=== PATIENT | male | born 1995 | race African-American/Black ===

== ENCOUNTER 2019-07-27 22:36 | Emergency (ER) | payer OTHER ==
[~2019-07-27] VITALS: Ht 172.7 cm; Wt 88.5 kg
[~2019-07-27 22:36] MED LIST: DOXYCYCLINE MO100 MG ORAL; NKM; NORCO 5-325 TA1 EACH PO; inhaler HHN
[2019-07-27 22:45] VITALS: BP 128/78
--- NOTE | 2019-07-27 22:45 | NUR ---
ED Nurse Note: Pt ambulated to ED from home c/o infection in the urethra. Pt stated denies discharge, no difficulty urinating since one week ago. Pt stated irriation. Pt stated he had chlamydia one month and got treated. VSS. Pt is A&Ox4. ERMD at bedside
[2019-07-27] MEDS ORDERED: Lidocaine 1% MPF 10mg/ml 5ml INJ ONE (23:00)
[2019-07-27] MEDS ORDERED: Azithromycin 250mg tab ORAL ONE (23:00)
--- NOTE | 2019-07-27 23:00 | NUR ---
ED Nurse Note: Pt given antibiotic shot per order in L deltoid, pt tolerated well
--- NOTE | 2019-07-27 23:02 | Emergency Room Report ---
History of Present Illness General Chief Complaint: Male Urogenital Problems Source: Patient, Medical Record Present Illness HPI This a 23-year-old STDs. He presents with complaint of dysuria. He has no discharge. Onset for last few days. He has a new partner. Has unprotected sex. He has previous STDs that was treated here. He said that got better. No fever chills. Worse with urination. Better without urination. He denies any discharge. Denies any other complaint. COVID-19 risk:Travel to affect: No Allergies: Coded Allergies: No Known Allergies (Unverified , 07/20/12) Patient History Past Medical History: see triage record, old chart reviewed Past Surgical History: none Pertinent Family History: none Social History: Denies: smoking Immunizations: other Reviewed Nursing Documentation: PMH: Agreed; PSxH: Agreed Nursing Documentation-PMH Hx Asthma: Yes Review of Systems Eye: Denies: eye pain, blurred vision ENT: Denies: ear pain, nose congestion, throat swelling Respiratory: Denies: cough, shortness of breath Cardiovascular: Denies: chest pain, palpitations Gastrointestinal: Denies: abdominal pain, diarrhea, nausea, vomiting Genitourinary: Reports: dysuria Musculoskeletal: Denies: back pain, joint pain Skin: Denies: rash Neurological: Denies: headache, numbness Endocrine: Denies: increased thirst, increased urine Hematologic/Lymphatic: Denies: easy bruising All Other Systems: negative except mentioned in HPI Physical Exam Vital Signs Date Time Temp Pulse Resp B/P (MAP) Pulse Ox O2 Delivery O2 Flow Rate FiO2 07/27/19 22:48 97.5 62 16 109/65 (80) 95 Room Air Vitals normal Sp02 EP Interpretation: reviewed, normal General Appearance: well appearing, no apparent distress, alert Head: normocephalic, atraumatic Eyes: bilateral eye PERRL, bilateral eye EOMI ENT: hearing grossly normal, normal pharynx Neck: full range of motion, supple, no meningismus Respiratory: chest non-tender, lungs clear, normal breath sounds Cardiovascular #1: regular rate, rhythm, no murmur Gastrointestinal: normal bowel sounds, non tender, no mass, no organomegaly, no bruit, non-distended Genitourinary: deferred - Per patient request Musculoskeletal: back normal, normal range of motion, gait/station normal Psychiatric: mood/affect normal Medical Decision Making Diagnostic Impression: Primary Impression: Chlamydial urethritis ER Course Patient presents with urethritis. Most likely chlamydia. He said he had it before and similar symptoms now. Recommend outpatient testing for HIV, hepatitis, syphilis and other STDs. Last Vital Signs Date Time Temp Pulse Resp B/P (MAP) Pulse Ox O2 Delivery O2 Flow Rate FiO2 07/27/19 22:48 97.5 62 16 109/65 (80) 95 Room Air Status: improved Disposition: HOME, SELF-CARE Condition: Stable Patient Instructions: Urethritis, Adult Additional Instructions: Have your partners treated also. Follow-up as outpatient with your doctor in 7 days as needed. Recommend outpatient testing for HIV, hepatitis, syphilis and other STDs. There are several free or low cost CD clinics in the [place] area. You may look it up. Return if worse. Kalyan Shafer MD Jul 27, 2019 23:02
[2019-07-27 23:05] VITALS: BP 109/65
--- NOTE | 2019-07-27 23:05 | NUR ---
ER DISCHARGE NOTE: Patient is cleared to be discharged per ERMD, pt is aox4, on room air, with stable vital signs. pt was given dc and prescription instructions, pt was able to verbalize understanding, pt id band removed. pt is able to ambulate with steady gait. pt took all belongings.
== END 2019-07-27 23:05 | disposition home or self-care (01) ==
LOC: EMR 22:52
DX: A56.01 Chlamydial cystitis and urethritis (principal)
CPT/HCPCS: 96372; 96374; J0696; Q0144; Z7502; 99284

== ENCOUNTER 2019-08-16 21:16 | Emergency (ER) | payer OTHER ==
[~2019-08-16] VITALS: Ht 170.2 cm; Wt 77.1 kg
[2019-08-16 21:30] VITALS: BP 121/76
--- NOTE | 2019-08-16 21:30 | NUR ---
ED Nurse Note: Pt walked into ED for c/o penile irritation and wanting to get checked for STD. Pt states he was recently seen here at [facility] and was treated for chlamydia, but his significant other was not treated and passed the STD back to him during intercourse. Pt has no other symptoms such as abdominal pain, dysuria or discharge. Pt is aaox4, no cardiac or respiratory distress noted.
[2019-08-16] MEDS ORDERED: Lidocaine 1% MPF 10mg/ml 5ml INJ ONE (21:45)
[2019-08-16] MEDS ORDERED: Azithromycin 250mg tab ORAL ONE (21:45)
--- NOTE | 2019-08-16 21:57 | Emergency Room Report ---
History of Present Illness General Chief Complaint: Male Urogenital Problems Source: Patient Present Illness HPI 24-year-old male presents the ER due to concern for STD. Patient seen and treated here approximately 3 weeks ago for the same. Unfortunately he continued to have sexual intercourse with his girlfriend as she was not treated. And now his symptoms have returned. He denies any fevers. Complains of some burning and discomfort on urination. Allergies: Coded Allergies: No Known Allergies (Unverified , 07/20/12) COVID-19 Screening Contact w/high risk pt: No Recent Travel to affected area: No Experienced COVID-19 symptoms?: No Patient History Reviewed Nursing Documentation: PMH: Agreed; PSxH: Agreed Nursing Documentation-PM Past Medical History: No Stated History Hx Asthma: Yes Review of Systems All Other Systems: negative except mentioned in HPI Physical Exam Vital Signs Date Time Temp Pulse Resp B/P (MAP) Pulse Ox O2 Delivery O2 Flow Rate FiO2 08/16/19 21:23 98.2 86 20 121/76 (91) 95 Room Air Sp02 EP Interpretation: reviewed, normal General Appearance: well appearing, no apparent distress Head: normocephalic, atraumatic Eyes: bilateral eye PERRL, bilateral eye EOMI ENT: hearing grossly normal, moist mucus membranes Neck: full range of motion, supple Respiratory: lungs clear, normal breath sounds, no rhonchi, no respiratory distress, no retraction, no wheezing Cardiovascular #1: normal peripheral pulses, regular rate, rhythm, no murmur Gastrointestinal: non tender, soft, non-distended, no guarding Neurologic: alert, oriented x3, no focal defects Skin: normal color, warm/dry Medical Decision Making Diagnostic Impression: Primary Impression: STD (male) ER Course MDM: 24-year-old male presented due to concern for STD. He has a positive exposure. I treated but unfortunately did not have his partner treated. differential diagnosis: Urethritis, gonorrhea, chlamydia Clinical course Patient empirically treated with Rocephin and azithromycin. Find STD testing Diagnosis -urethritis Stable and discharged to home with instructions to avoid sexual intercourse for at least 2 weeks. Partner is receiving treatment for STD today. Last Vital Signs Date Time Temp Pulse Resp B/P (MAP) Pulse Ox O2 Delivery O2 Flow Rate FiO2 08/16/19 21:30 98.2 86 20 121/76 95 Room Air Disposition: HOME, SELF-CARE Patient Instructions: Urethritis, Adult Additional Instructions: Please avoid sexual intercourse for at least 2 weeks. Patient is instructed to follow-up with her primary care doctor, primary care clinic or [facility] in 1 to 2 days. Patient instructed to return for any worsening symptoms or concerns. Please note that the documentation in this note was used with [employer] dictation technology. Pleae be advised that this may lead to erroneous text due to misinterpretation by the dictation software Seamus Horta M.D. Aug 16, 2019 21:57
[2019-08-16 22:05] VITALS: BP 120/80
== END 2019-08-16 22:06 | disposition home or self-care (01) ==
LOC: EMR 21:38
DX: N34.2 Other urethritis (principal); Z20.2 Contact with and (suspected) exposure to infections with a predominantly sexual mode of transmission
CPT/HCPCS: 96372; 96374; J0696; Q0144; Z7502; 99284

== ENCOUNTER 2019-09-05 12:25 | Emergency (ER) | payer OTHER ==
[~2019-09-05] VITALS: Ht 172.7 cm; Wt 88.5 kg
[2019-09-05 13:00] VITALS: BP 135/80
--- NOTE | 2019-09-05 13:00 | NUR ---
ED Nurse Note: Dr. Bella at bedside.
[2019-09-05] MEDS ORDERED: DOXYCYCLINE MO100 MG ORAL (13:20)
--- NOTE | 2019-09-05 13:20 | Emergency Room Report ---
History of Present Illness General Chief Complaint: Male Urogenital Problems Source: Patient Present Illness HPI 24-year-old male presents with dysuria x4 weeks no discharge he was treated previously for gonorrhea chlamydia, patient presents for evaluation, no aggravating leaving factor severity is mild, intermittent when he urinates, no fevers no chills patient presents for evaluation Allergies: Coded Allergies: No Known Allergies (Unverified , 09/05/19) COVID-19 Screening Contact w/high risk pt: No Recent Travel to affected area: No Experienced COVID-19 symptoms?: No Patient History Past Medical History: see triage record Reviewed Nursing Documentation: PMH: Agreed; PSxH: Agreed Nursing Documentation-PMH Past Medical History: No Stated History Hx Asthma: Yes Review of Systems All Other Systems: negative except mentioned in HPI Physical Exam Vital Signs Date Time Temp Pulse Resp B/P (MAP) Pulse Ox O2 Delivery O2 Flow Rate FiO2 09/05/19 12:47 98.4 87 16 135/80 (98) 96 Room Air General Appearance: well appearing, no apparent distress Head: normocephalic, atraumatic ENT: hearing grossly normal, normal voice Neck: full range of motion, supple Respiratory: no respiratory distress, speaking full sentences Genitourinary: other - Air Export Coordinator Phyllis Noah, penis is unremarkable no discharge no lesions Neurologic: alert, normal gait Psychiatric: mood/affect normal Skin: no rash Medical Decision Making Diagnostic Impression: Primary Impression: Possible exposure to STD ER Course 24-year-old male presents with most likely a possible STD exposure will treat patient with ceftriaxone is a throat will provide patient with doxycycline disposition home with return precautions follow-up with PCP Last Vital Signs Date Time Temp Pulse Resp B/P (MAP) Pulse Ox O2 Delivery O2 Flow Rate FiO2 09/05/19 12:47 98.4 87 16 135/80 (98) 96 Room Air Disposition: HOME, SELF-CARE Condition: Stable Scripts Doxycycline Monohydrate* (DOXYCYCLINE MONOHYDRATE*) 100 Mg Capsule 100 MG ORAL Q12H, #28 CAP 0 Refills Prov: Ortiz Bella MD 09/05/19 Referrals: NOT CHOSEN IPA/,REFERRING (PCP) [facility] [facility] Patient Instructions: Chlamydia, Male, Gonorrhea, Human Papillomavirus, Easy-to -Read Additional Instructions: The patient was provided with discharge instructions, notified to follow-up with a primary care doctor and or specialist in the next 24-48 hours, and to return to the ED if they have worsening of their symptoms. Please note that this report is being documented using [employer] technology. This can lead to erroneous entry secondary to incorrect interpretation by the dictating instrument. Ortiz Bella MD Sep 05, 2019 13:20
--- NOTE | 2019-09-05 13:29 | NUR ---
ED Nurse Note: Pt from home came in due to penile irritation and burning sensation x 1 month. Denies fever or chills. Pt's VSS, on RA, afebrile on triage. Placed on bed. Pt able to urinate; obtained specimen.
[2019-09-05 13:30] VITALS: BP 135/80
[2019-09-05] MEDS ORDERED: Lidocaine 1% MPF 10mg/ml 5ml INJ ONE (13:30)
[2019-09-05] MEDS ORDERED: Azithromycin 250mg tab ORAL ONE (13:30)
[2019-09-05 13:58] LABS: APPEARANCE,URINE CLEAR; BILIRUBIN, URINE NEGATIVE (NEGATIVE); COLOR,URINE PALE YELLOW; GLUCOSE, URINE (UA) NEGATIVE (NEGATIVE); KETONES,URINE NEGATIVE (NEGATIVE); LEUKOCYTE ESTERASE ,URINE NEGATIVE (NEGATIVE); NITRITE,URINE NEGATIVE (NEGATIVE); PH,URINE 6.5 (4.5-8.0); PROTEIN,URINE NEGATIVE (NEGATIVE); UROBILINOGEN,URINE NORMAL MG/DL (0.0-1.0)
== END 2019-09-05 13:30 | disposition home or self-care (01) ==
LOC: MERGE 12:50 → EMR 12:50
DX: R30.0 Dysuria (principal); Z20.2 Contact with and (suspected) exposure to infections with a predominantly sexual mode of transmission
CPT/HCPCS: 81003; 87491; 87590; 96372; J0696; Q0144; Z7502; 99283

== ENCOUNTER 2019-09-25 07:41 | Emergency (ER) | payer OTHER ==
[~2019-09-25] VITALS: Ht 172.7 cm; Wt 88.5 kg
--- NOTE | 2019-09-25 07:53 | NUR ---
ED Nurse Note: . Pt ambulated to ed c/o left eye stye Addendum: 09/25/19 at 0754 by PDELEON ED Nurse Note: Pt ambulated to ed c/o left eye stye. pt reports having pink eye x 3 days ago and got from his gf. pt applies stye gel to left eye and has been using sterile eye drops for his eyes. pt denies pain. denies "Crust" or discharge of eyes. bilateral sclera appears red.
[2019-09-25 07:55] VITALS: BP 129/84
--- NOTE | 2019-09-25 07:58 | NUR ---
ED Nurse Note: Pt reports blurriness in left eye, pt denies use of contacts and/or glasses. pt appears to be comfortable in bed on his phone.
--- NOTE | 2019-09-25 08:42 | Emergency Room Report ---
History of Present Illness General Chief Complaint: Eye Problems Source: Patient Present Illness HPI This patient states that he has had red, puffy eyes for the past 3 days. He states when he wakes up in the morning he does have crusting that he will wipe off. He has been using "eyedrops." He denies any other symptoms. He denies sneezing or runny nose. He denies cough or congestion. He denies chest pain or shortness of breath. He states that his girlfriend has the same symptoms. He states that his girlfriend has gotten better but his has not. He has no other complaints. Allergies: Coded Allergies: No Known Allergies (Unverified , 07/20/12) COVID-19 Screening Contact w/high risk pt: No Recent Travel to affected area: No Experienced COVID-19 symptoms?: No COVID-19 Testing performed KNUCKLER: No Patient History Past Medical History: none Social History: Denies: smoking, alcohol use, drug use Reviewed Nursing Documentation: PMH: Agreed; PSxH: Agreed Nursing Documentation-PMH Past Medical History: No History, Except For Hx Asthma: Yes Review of Systems All Other Systems: negative except mentioned in HPI Physical Exam Vital Signs Date Time Temp Pulse Resp B/P (MAP) Pulse Ox O2 Delivery O2 Flow Rate FiO2 09/25/19 07:47 97.5 69 18 129/84 (99) 98 Room Air Sp02 EP Interpretation: reviewed, normal General Appearance: no apparent distress, alert, GCS 15, non-toxic Head: normocephalic, atraumatic Eyes: bilateral eye PERRL, bilateral eye other - conjunctival erythema and tearing. mild bilateral eyelid swelling. ENT: hearing grossly normal, normal pharynx, no angioedema, normal voice Neck: full range of motion, supple/symm/no masses Respiratory: chest non-tender, lungs clear, normal breath sounds, speaking full sentences Cardiovascular #1: regular rate, rhythm, no edema Cardiovascular #2: 2+ carotid (R), 2+ carotid (L), 2+ radial (R), 2+ radial (L) , 2+ dorsalis pedis (R), 2+ dorsalis pedis (L) Gastrointestinal: normal bowel sounds, non tender, soft, non-distended, no guarding, no rebound Rectal: deferred Genitourinary: normal inspection, no CVA tenderness Musculoskeletal: back normal, normal range of motion, calf tenderness, gait/ station normal, non-tender Neurologic: alert, motor strength/tone normal, oriented x3, sensory intact, responsive, speech normal Psychiatric: judgement/insight normal, memory normal, mood/affect normal, no suicidal/homicidal ideation Reflexes: 3+ bicep (R), 3+ bicep (L), 3+ tricep (R), 3+ tricep (L), 3+ knee (R) , 3+ knee (L) Lymphatic: no adenopathy Medical Decision Making Diagnostic Impression: Primary Impression: Conjunctivitis ER Course This patient has conjunctivitis. He does not wear contact lenses. This possibly is a manifestation of COVID-19 given the current world pandemic. As a precaution, I will go ahead and place the patient on topical antibiotics. He has a lot of tearing and swelling so I will also use an antihistamine. Overall , the patient's evaluation is benign. The patient is instructed to follow-up closely with his primary care physician. The patient is given close return precautions and follow-up instructions. Given how benign the patient's symptoms , I did not test this patient for COVID-19, however, I did educate the patient that he could have this manifestation only. This patient was evaluated in the context of the global COVID-19 pandemic, which necessitated consideration that the patient might be at risk for infection with the [id number] virus that causes COVID-19. Institutional protocols and algorithms that pertain to the evaluation of patients at risk for COVID-19 and the state of rapid change based on information released by multiple regulatory bodies including the CDC and federal and state organizations. These policies and algorithms were followed during the patient' s care in the ED. Last Vital Signs Date Time Temp Pulse Resp B/P (MAP) Pulse Ox O2 Delivery O2 Flow Rate FiO2 09/25/19 07:55 97.5 69 18 129/84 98 Room Air Status: improved Disposition: HOME, SELF-CARE Condition: Improved Referrals: NON PHYSICIAN (PCP) Patient Instructions: Viral Conjunctivitis, Bacterial Conjunctivitis, Easy-to- Read Kimmy Herrera DO September 25, 2019 08:42
[2019-09-25 08:44] VITALS: BP 125/81
--- NOTE | 2019-09-25 08:45 | NUR ---
ED Nurse Note: Pt was discharged per ermd orders; pt denies pain. pt was given dc and rx instructions and verbalized understanding. pt id band was removed. pt vss. pt took all belongings home.
[2019-09-25] MEDS ORDERED: ZERVIATE1 EACH OP (08:46)
[2019-09-25] MEDS ORDERED: ERYTHROMYCIN1 G1 OP (08:46)
== END 2019-09-25 08:45 | disposition home or self-care (01) ==
LOC: EMR 07:56
DX: H10.9 Unspecified conjunctivitis (principal)
CPT/HCPCS: 99281

== ENCOUNTER 2019-09-26 23:06 | Emergency (ER) | payer OTHER ==
[~2019-09-26] VITALS: Ht 172.7 cm; Wt 72.6 kg
[~2019-09-26 23:06] MED LIST changes: +ERYTHROMYCIN1 G1 OP; +ZERVIATE1 EACH OP
[2019-09-26 23:25] VITALS: BP 157/89
--- NOTE | 2019-09-26 23:27 | NUR ---
Nurse Note: Pt walked in c/o bilateral eye puffiness and tearing since 09/22. Pt stated he noticed blood in tears, states he has blurry vision. Pt stated he was in ER for silimar s/s but has not gotten better; was prescribed with antibiotics but not effective. Denies pain. Acutiy check completed.
[2019-09-27] MEDS ORDERED: Lidocaine 1% MPF 10mg/ml 5ml INJ ONE
[2019-09-27] MEDS ORDERED: Azithromycin 250mg tab ORAL ONE
[2019-09-27 00:10] VITALS: BP 157/89
--- NOTE | 2019-09-27 00:10 | NUR ---
ED Nurse Note: Pt cleared by health care Provider for discharge. DC instructions was given and explained to pt and verbalized understanding of teachings. All medical deviecs such as ID band removed. Pt is AAO x4, ambulatory and left with all personal belongings.
--- NOTE | 2019-09-27 00:23 | Emergency Room Report ---
History of Present Illness General Chief Complaint: Eye Problems Source: Patient Present Illness HPI 24-year-old male presents ED for eye problems. States that symptoms started 4 days ago. His girlfriend had similar discharge to the eyes but has since resolved. Was seen here yesterday and prescribed antibiotic but states his symptoms are persisting. Denies pain. Notes crusting discharge. Notes blurry vision. Denies fevers or chills. No other aggravating relieving factors. Denies any other associated symptoms Allergies: Coded Allergies: No Known Allergies (Unverified , 07/20/12) COVID-19 Screening Contact w/high risk pt: No Recent Travel to affected area: No Experienced COVID-19 symptoms?: No COVID-19 Testing performed INSURANCE POLICY ISSUE CLERK: No Patient History Past Medical History: asthma Past Surgical History: none Pertinent Family History: none Social History: Denies: smoking, alcohol use, drug use Immunizations: UTD Reviewed Nursing Documentation: PMH: Agreed; PSxH: Agreed Nursing Documentation-PMH Hx Asthma: Yes Review of Systems All Other Systems: negative except mentioned in HPI Physical Exam Vital Signs Date Time Temp Pulse Resp B/P (MAP) Pulse Ox O2 Delivery O2 Flow Rate FiO2 09/26/19 23:11 98.4 86 16 157/89 (111) 96 Room Air Sp02 EP Interpretation: reviewed, normal General Appearance: no apparent distress, alert, GCS 15, non-toxic Head: normocephalic Eyes: bilateral eye PERRL, bilateral eye EOMI, bilateral eye lid inflammation, bilateral eye Scleral Injection, bilateral eye other - discharge noted ENT: hearing grossly normal, normal pharynx, no angioedema, normal voice Neck: full range of motion, supple, no meningismus, supple/symm/no masses Respiratory: normal inspection Cardiovascular #1: normal inspection Gastrointestinal: normal inspection Rectal: deferred Genitourinary: no CVA tenderness Musculoskeletal: normal inspection Neurologic: alert, motor strength/tone normal, oriented x3, sensory intact, responsive, speech normal Psychiatric: normal inspection Skin: no rash Lymphatic: normal inspection Medical Decision Making Diagnostic Impression: Primary Impression: Conjunctivitis Qualified Codes: H10.9 - Unspecified conjunctivitis ER Course Hospital Course 24-year-old M presents to ED with bilateral eye redness and discharge Differential diagnoses include: conjunctivitis, traumatic iritis, foreign body, corneal abrasion Clinical course Patient placed on stretcher. After initial history, physical exam revealed a male no acute distress. There is scleral injection to both eyes. There is also lid inflammation and swelling. There is noticeable discharge. Patient was seen yesterday and prescribed erythromycin ointment. It is too soon to notice improvement from medication. No signs of septal cellulitis. Afebrile. Patient has been here previously for STD evaluation multiple times. Concern for gonococcal conjunctivitis. Given Rocephin/azithromycin here. Patient will continue the erythromycin ointment as directed. I will provide ophthalmology referrals. Safe for discharge for close outpatient follow-up Diagnosis - conjunctivitis Stable and discharged to home. continue erythromycin as prescribed. Followup with PMD/Optho. Return to ED if symptoms recur or worsen Last Vital Signs Date Time Temp Pulse Resp B/P (MAP) Pulse Ox O2 Delivery O2 Flow Rate FiO2 09/27/19 00:10 98.4 78 16 157/89 96 Room Air Status: improved Disposition: HOME, SELF-CARE Condition: Stable Referrals: Cullen Erickson MD, Maziar M.D. MD NOT CHOSEN IPA/,REFERRING (PCP) [facility] INFO: New Patient Screening: Sat- 8am-1pm Sat- 9am -5pm and Sat 2pm-5pm [facility] Pediatric[facility](age 2-12) - Orthodontic Clinic - Hours: Sat,Sat,, 8:15am and 1pm (new patient screening), Tues. 1pm. Emergency clinic Saturday - Saturday 8:30am and 1pm, Tues. 1pm. *Call to check if clinic is open; No appointment necessary for the first visit ( new patient screening), Arrive 15-30 minutes early as it is first come, first serve. Patient Instructions: Bacterial Conjunctivitis, [id number] Additional Instructions: continue erythromycin ointment for both eyes. followup with eye doctor. Adrian Nicole MD September 27, 2019 00:23
== END 2019-09-27 00:10 | disposition home or self-care (01) ==
LOC: EMR 23:33
DX: H10.9 Unspecified conjunctivitis (principal)
CPT/HCPCS: 96372; J0696; Q0144; Z7502; 99283

== ENCOUNTER 2019-09-29 10:15 | Emergency (ER) | payer OTHER ==
[~2019-09-29] VITALS: Ht 172.7 cm; Wt 88.5 kg
[2019-09-29 10:23] VITALS: BP 119/74
--- NOTE | 2019-09-29 10:30 | NUR ---
ED Nurse Note: patient walked into ED from home c/o continued redness and edema bilateral eyes even after using the eye drops prescribed. patient reports his girlfriend had the same eye problem which is resolved now. patient is alert awake x4 ambulatory breathing unlabored and even, speaking in full sentences.
[2019-09-29] MEDS ORDERED: OCUFLOX5 ML BOTH EYES (11:12)
[2019-09-29 11:20] VITALS: BP 119/74
--- NOTE | 2019-09-29 11:20 | NUR ---
ER DISCHARGE NOTE: Patient is cleared to be discharged per ERMD DR DIOR, pt is aox4, on room air, with stable vital signs. pt was given dc and prescription instructions, pt was able to verbalize understanding, pt id band removed without complications. pt is able to ambulate with steady gait. pt took all belongings.
--- NOTE | 2019-09-29 11:29 | Emergency Room Report ---
History of Present Illness General Chief Complaint: Eye Problems Source: Patient Present Illness HPI 24-year-old male presents with redness and discharge to both eyes. Was seen here initially on 09/24. Noted to be conjunctivitis and prescribed erythromycin ointment. Returned on 09/25 because symptoms were worsening with increased swelling and discharge. Patient was given antibiotics and asked to continue the ointment. Patient here today because symptoms are not resolving. Denies fevers or chills. Denies runny nose cough or congestion. Denies photophobia or blurry vision. No other aggravating relieving factors. 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 Patient History Past Medical History: asthma Past Surgical History: none Pertinent Family History: none Social History: Denies: smoking, alcohol use, drug use Immunizations: UTD Reviewed Nursing Documentation: PMH: Agreed; PSxH: Agreed Nursing Documentation-PMH Past Medical History: No History, Except For Hx Asthma: Yes Review of Systems All Other Systems: negative except mentioned in HPI Physical Exam Vital Signs Date Time Temp Pulse Resp B/P (MAP) Pulse Ox O2 Delivery O2 Flow Rate FiO2 09/29/19 10:23 98.2 90 19 119/74 (89) 95 Room Air Sp02 EP Interpretation: reviewed, normal General Appearance: no apparent distress, alert, GCS 15, non-toxic Head: normocephalic, atraumatic Eyes: bilateral eye PERRL, bilateral eye EOMI, bilateral eye lid inflammation, bilateral eye Scleral Injection ENT: hearing grossly normal, normal pharynx, no angioedema, normal voice Neck: full range of motion, supple/symm/no masses Respiratory: chest non-tender, lungs clear, normal breath sounds, speaking full sentences Cardiovascular #1: regular rate, rhythm, no edema Cardiovascular #2: 2+ carotid (R), 2+ carotid (L), 2+ radial (R), 2+ radial (L) , 2+ dorsalis pedis (R), 2+ dorsalis pedis (L) Gastrointestinal: normal bowel sounds, non tender, soft, non-distended, no guarding, no rebound Rectal: deferred Genitourinary: normal inspection, no CVA tenderness Musculoskeletal: back normal, normal range of motion, gait/station normal, non- tender Neurologic: alert, motor strength/tone normal, oriented x3, sensory intact, responsive, speech normal Psychiatric: judgement/insight normal, memory normal, mood/affect normal, no suicidal/homicidal ideation Reflexes: 3+ bicep (R), 3+ bicep (L), 3+ tricep (R), 3+ tricep (L), 3+ knee (R) , 3+ knee (L) Lymphatic: no adenopathy Medical Decision Making Diagnostic Impression: Primary Impression: Conjunctivitis Qualified Codes: H10.9 - Unspecified conjunctivitis ER Course Hospital Course 24 yo M presents with discharge to both eyes Differential diagnoses include: conjunctivitis, traumatic iritis, foreign body, corneal abrasion Clinical course Patient placed on stretcher. After initial history, physical exam revealed a male no acute distress. There is injected conjunctiva and both eyes. Pupils equally reactive to light bilaterally. There is noted discharge. There is lid inflammation No runny nose or cough or congestive symptoms. Afebrile. I discussed with ophthalmology. Agreed that this is likely viral as patient likely transmitted from his girlfriend. They will evaluate in their office today. patient agrees to plan. safe for discharge Diagnosis - conjunctivitis Stable and discharged to home with prescription for Ocuflox. Followup with PMD/ Optho. Return to ED if symptoms recur or worsen Last Vital Signs Date Time Temp Pulse Resp B/P (MAP) Pulse Ox O2 Delivery O2 Flow Rate FiO2 09/29/19 11:20 98.2 90 19 119/74 95 Room Air Status: improved Disposition: HOME, SELF-CARE Condition: Stable Scripts Ofloxacin (OCUFLOX) 5 Ml Drops 1 DROP BOTH EYES QID for 7 Days, ML Prov: Adrian Nicole MD 09/29/19 Referrals: Cullen Erickson MD, Maziar M.D. MD Patient Instructions: Viral Conjunctivitis Additional Instructions: please see Dr Erickson in his office today (09/28) at 4pm. Adrian Nicole MD September 29, 2019 11:29
== END 2019-09-29 11:20 | disposition home or self-care (01) ==
LOC: EMR 10:43
DX: H10.9 Unspecified conjunctivitis (principal)
CPT/HCPCS: 99282

== ENCOUNTER 2019-10-17 12:06 | Emergency (ER) | payer OTHER ==
[~2019-10-17] VITALS: Ht 170.2 cm; Wt 88.5 kg
[~2019-10-17 12:06] MED LIST changes: +OCUFLOX5 ML BOTH EYES
--- NOTE | 2019-10-17 12:19 | NUR ---
ED Nurse Note: Pt walked into ED w/ c/o burning while urinating. Pt states he used to have a ring abround shaft too, but not anymore. He is alert and ox4, ambulatory. He is set up on monitor.
[2019-10-17 12:22] VITALS: BP 134/72
[2019-10-17 12:43] LABS: APPEARANCE,URINE CLEAR; BILIRUBIN, URINE NEGATIVE (NEGATIVE); COLOR,URINE PALE YELLOW; GLUCOSE, URINE (UA) NEGATIVE (NEGATIVE); KETONES,URINE NEGATIVE (NEGATIVE); LEUKOCYTE ESTERASE ,URINE NEGATIVE (NEGATIVE); NITRITE,URINE NEGATIVE (NEGATIVE); PH,URINE 7 (4.5-8.0); PROTEIN,URINE NEGATIVE (NEGATIVE); UROBILINOGEN,URINE NORMAL MG/DL (0.0-1.0)
--- NOTE | 2019-10-17 13:27 | Emergency Room Report ---
History of Present Illness General Chief Complaint: Male Urogenital Problems Source: Patient Present Illness HPI 24-year-old male with no significant past medical history here complaining of 2 weeks of pressure when urinating and difficulty voiding. Patient reports that he has been dealing on and off with this for the past several months has been tested and treated for sexually transmitted diseases multiple times. Patient denies any penile discharge at this time. Denies any hematuria, fever and chills, suprapubic pain, flank pain, nausea vomiting. Patient sexual partner is also here and has been diagnosed with PID. Patient has been treated for chlamydia and gonorrhea multiple occasions. Reports that was last treated for that about a week ago. Patient reports that he continues to be sexually active with the same partner without any protection. Denies any lesions in the penile area. Has not been seen by primary doctor or urologist. Denies any nocturia. Denies scrotal pain, swelling, and all other associated symptoms. 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 Patient History Past Medical History: see triage record Past Surgical History: none Pertinent Family History: none Immunizations: UTD Reviewed Nursing Documentation: PMH: Agreed; PSxH: Agreed Nursing Documentation-PMH Past Medical History: No History, Except For Hx Asthma: Yes Review of Systems All Other Systems: negative except mentioned in HPI Physical Exam Vital Signs Date Time Temp Pulse Resp B/P (MAP) Pulse Ox O2 Delivery O2 Flow Rate FiO2 10/17/19 12:12 98.6 85 16 126/76 (93) 97 Room Air Sp02 EP Interpretation: reviewed, normal General Appearance: no apparent distress, alert, GCS 15, non-toxic Head: normocephalic, atraumatic Eyes: bilateral eye normal inspection, bilateral eye PERRL ENT: hearing grossly normal, normal pharynx, no angioedema, normal voice Neck: full range of motion, supple/symm/no masses Respiratory: chest non-tender, lungs clear, normal breath sounds, speaking full sentences Cardiovascular #1: regular rate, rhythm, no edema Gastrointestinal: normal bowel sounds, non tender, soft, no mass, no organomegaly, no peritonitis Rectal: deferred Genitourinary: no CVA tenderness Musculoskeletal: back normal Neurologic: alert, motor strength/tone normal, oriented x3, sensory intact, responsive, speech normal Psychiatric: judgement/insight normal, memory normal, mood/affect normal, no suicidal/homicidal ideation Skin: no rash Lymphatic: no adenopathy Medical Decision Making PA Attestation All my diagnosis and treatment plans were reviewed ad discussed with my supervising physician Dr. Herrera Diagnostic Impression: Primary Impression: Prostatitis ER Course 24-year-old male with no significant past medical history here complaining of 2 weeks of pressure when urinating and difficulty voiding. Patient reports that he has been dealing on and off with this for the past several months has been tested and treated for sexually transmitted diseases multiple times. Patient denies any penile discharge at this time. Denies any hematuria, fever and chills, suprapubic pain, flank pain, nausea vomiting. Patient sexual partner is also here and has been diagnosed with PID. Patient has been treated for chlamydia and gonorrhea multiple occasions. Reports that was last treated for that about a week ago. Patient reports that he continues to be sexually active with the same partner without any protection. Denies any lesions in the penile area. Has not been seen by primary doctor or urologist. Denies any nocturia. Denies scrotal pain, swelling, and all other associated symptoms. Ddx considered but are not limited to: Prostatitis, UTI, chlamydia, Gonorrhea, syphilis, HIV, herpes 1 or 2 Vital signs: are WNL, pt. is afebrile H&PE are most consistent with : Prostatitis most likely secondary to STD ORDERS: UA, urince cx, doxycycline was electronically transmitted to desired pharmacy, ciprofloxacin, tamsulosin to help with the voiding ED INTERVENTIONS: None required at this time. DISCHARGE: At this time pt. is stable for d/c to home. Will provide printed patient care instructions, and any necessary prescriptions. Care plan and follow up instructions have been discussed with the patient prior to discharge. I gave patient a list of clinics that he could follow-up with and establish a primary doctor for referral to urologist. Due to the sexual partner being diagnosed with PID most likely the patient and the significant other keep reinfecting each other and patient to be treated again more aggressively. Patient does not want any injections of antibiotic today. Advised patient to follow primary doctor, if worsening symptoms return to the emergency room. Patient is afebrile, no distress he can be discharged and treated at home Patient was evaluated in the context of the global COVID-19 pandemic, which necessitated consideration that the patient might be at risk for infection with the SARS-COV-2 virus that causes COVID-19. Institutional protocols and algorithms that pertain to the evaluation of patients at risk for COVID-19 are in a state of rapid change based on information relieved by multiple regulatory bodies including the CDC and the federal and state organizations. These policies and algorithms were followed during the patient's care in the ED. Last Vital Signs Date Time Temp Pulse Resp B/P (MAP) Pulse Ox O2 Delivery O2 Flow Rate FiO2 10/17/19 12:22 98.4 73 18 134/72 99 Room Air Disposition: HOME, SELF-CARE Condition: Stable Scripts Doxycycline Monohydrate* (DOXYCYCLINE MONOHYDRATE*) 100 Mg Capsule 100 MG ORAL Q12H, #28 CAP 0 Refills Prov: Ildefonso Cook 10/17/19 Tamsulosin HCl (Flomax) 0.4 Mg Cap.er.24h 0.4 MG ORAL DAILY for 10 Days, #10 CAP Prov: Ildefonso Cook 10/17/19 Ciprofloxacin* (CIPRO*) 500 Mg Tablet 500 MG PO BID for 7 Days, #14 TAB Prov: Ildefonso Cook 10/17/19 Referrals: NON PHYSICIAN (PCP) Patient Instructions: Prostatitis, [id number] Additional Instructions: Take medication as directed, follow-up with your primary doctor for referral to urologist, if worsening symptoms return to the emergency room Ildefonso Cook Oct 17, 2019 13:27
[2019-10-17] MEDS ORDERED: CIPRO500 MG PO (13:28)
[2019-10-17] MEDS ORDERED: FLOMAX0.4 MG ORAL (13:28)
--- NOTE | 2019-10-17 13:33 | NUR ---
ER DISCHARGE NOTE: Patient is cleared to be discharged per ERMD, pt is aox4, on room air, with stable vital signs. pt was given dc and prescription instructions, pt was able to verbalize understanding, pt id band removed. pt is able to ambulate with steady gait. pt took all belongings. 2 prescriptions provided.
[2019-10-17 13:34] VITALS: BP 132/71
[2019-10-17] MEDS ORDERED: DOXYCYCLINE MO100 MG ORAL (14:22)
== END 2019-10-17 13:34 | disposition home or self-care (01) ==
LOC: EMR 12:30
DX: N41.9 Inflammatory disease of prostate, unspecified (principal)
CPT/HCPCS: 81003; Z7502; 99283

== ENCOUNTER → 2019-12-23 | Emergency (ER) | payer OTHER ==
[~2019-12-23] VITALS: Ht 170.2 cm; Wt 86.2 kg
[~2019-12-23] MED LIST changes: +CIPRO500 MG PO; +FLOMAX0.4 MG ORAL
--- NOTE | 2019-12-23 19:30 | NUR ---
ED Nurse Note: Patient walked into the ED with c/o burning sensation while urinating onset 1 week. Patient stated he was seen in the ED with the same symptoms recently. Patient refuses to give more information. Urine specimen asked to the pt.
--- NOTE | 2019-12-23 19:43 | Emergency Room Report ---
History of Present Illness General Chief Complaint: Male Urogenital Problems Source: Patient Present Illness HPI 24-year-old male with history of recurrences of UTI who has been seen at [facility] before here biotics. Patient reports that he will give a urine however would like to get a prescription before urine results are back. Patient denies any abdominal pain, nausea vomiting fever and chills. Denies being sexually active, denies any penile discharge. Has a follow-up primary doctor. Complains of dysuria however denies any hematuria. Patient is afebrile and all other vital signs within normal limits. I explained to the patient that if any changes in urine culture new antibiotics will be called in the patient does not have the correct coverage and patient agrees with this plan. 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 Patient History Past Medical History: see triage record Past Surgical History: none Pertinent Family History: none Reviewed Nursing Documentation: PMH: Agreed; PSxH: Agreed Nursing Documentation-PMH Past Medical History: No Stated History Hx Asthma: Yes Review of Systems All Other Systems: negative except mentioned in HPI Physical Exam Vital Signs Date Time Temp Pulse Resp B/P (MAP) Pulse Ox O2 Delivery O2 Flow Rate FiO2 12/23/19 19:30 98.2 78 19 137/81 (99) 96 Room Air Sp02 EP Interpretation: reviewed, normal General Appearance: no apparent distress, alert, GCS 15, non-toxic Head: normocephalic, atraumatic Eyes: bilateral eye normal inspection, bilateral eye PERRL ENT: hearing grossly normal, normal pharynx, no angioedema, normal voice Neck: full range of motion, supple/symm/no masses Respiratory: chest non-tender, lungs clear, normal breath sounds, speaking full sentences Cardiovascular #1: regular rate, rhythm, no edema Gastrointestinal: normal bowel sounds, non tender, soft, non-distended, no guarding, no rebound Rectal: deferred Genitourinary: no CVA tenderness Musculoskeletal: back normal Neurologic: alert, motor strength/tone normal, oriented x3, sensory intact, responsive, speech normal Psychiatric: judgement/insight normal, memory normal, mood/affect normal, no suicidal/homicidal ideation Skin: no rash Lymphatic: no adenopathy Medical Decision Making PA Attestation All diagnoses and treatment plans were reviewed and discussed with my supervising physician Dr. Blankenship Diagnostic Impression: Primary Impression: UTI (urinary tract infection) ER Course 24-year-old male with history of recurrences of UTI who has been seen at [facility] before here biotics. Patient reports that he will give a urine however would like to get a prescription before urine results are back. Patient denies any abdominal pain, nausea vomiting fever and chills. Denies being sexually active, denies any penile discharge. Has a follow-up primary doctor. Complains of dysuria however denies any hematuria. Patient is afebrile and all other vital signs within normal limits. I explained to the patient that if any changes in urine culture new antibiotics will be called in the patient does not have the correct coverage and patient agrees with this plan. Denies any scrotal pain Ddx considered but are not limited to: UTI, pyelonephritis, urinary incontinence , prolapsed bladder Vital signs: are WNL, pt. is afebrile H&PE are most consistent with: UTI ORDERS: UA, urine cx, cipro as patient requesting and again reported that it works on her last time ED INTERVENTIONS: None required at this time. DISCHARGE: At this time pt. is stable for d/c to home. Will provide printed patient care instructions, and any necessary prescriptions. Care plan and follow up instructions have been discussed with the patient prior to discharge. Patient take medication as directed, follow-up primary care provider, if worsening symptoms return to the emergency room Last Vital Signs Date Time Temp Pulse Resp B/P (MAP) Pulse Ox O2 Delivery O2 Flow Rate FiO2 12/23/19 19:30 98.2 78 19 137/81 (99) 96 Room Air Disposition: HOME, SELF-CARE Condition: Stable Scripts Ciprofloxacin* (CIPRO*) 500 Mg Tablet 500 MG PO BID for 7 Days, #14 TAB Prov: Ildefonso Cook 12/23/19 Patient Instructions: Urinary Tract Infection Additional Instructions: Take medication as directed, follow primary care provider, worsening symptoms return to the emergency room Ildefonso Cook Dec 23, 2019 19:43
--- NOTE | 2019-12-23 19:44 | NUR ---
ED Nurse Note: Urine specimen sent.
[2019-12-23 19:52] VITALS: BP 124/78
[2019-12-23 20:00] LABS: APPEARANCE,URINE CLEAR; BILIRUBIN, URINE NEGATIVE (NEGATIVE); COLOR,URINE PALE YELLOW; GLUCOSE, URINE (UA) NEGATIVE (NEGATIVE); KETONES,URINE NEGATIVE (NEGATIVE); LEUKOCYTE ESTERASE ,URINE 1+ (NEGATIVE); NITRITE,URINE NEGATIVE (NEGATIVE); PH,URINE 6.5 (4.5-8.0); PROTEIN,URINE NEGATIVE (NEGATIVE); UROBILINOGEN,URINE NORMAL MG/DL (0.0-1.0)
== END | disposition home or self-care (01) ==
LOC: EMR 19:45
DX: N39.0 Urinary tract infection, site not specified (principal)
CPT/HCPCS: 81003; 87086; Z7502; 99283